=== PATIENT | female | born 1955 | race African-American/Black ===

== ENCOUNTER 2016-10-25 08:51 | Emergency (ER) | payer MEDICAID, OTHER ==
[~2016-10-25] VITALS: Ht 170.2 cm; Wt 87.1 kg
[2016-10-25] MEDS ORDERED: AMLO10TA2 PO (09:02)
[2016-10-25] MEDS ORDERED: ALPR1TAB2 PO (09:02)
[2016-10-25 09:17] LABS: *BILIRUBIN,URIN NEGATIVE (NEGATIVE); *BLOOD, URINE NEGATIVE (NEGATIVE); *COLOR,URINE YELLOW (YELLOW); *KETONES,URINE NEGATIVE (NEGATIVE); *PROTEIN,URINE NEGATIVE (NEGATIVE); *UROBILINOGEN,URINE 0.2 E.U./dl (NORMAL); LEUKOCYTE ESTERASE ,URINE 1+ (NEGATIVE); NITRITE, URINE NEGATIVE (NEGATIVE); PH,URINE 6.5 (5.0-8.0); UGLUCOSE NEGATIVE (NEGATIVE)
[2016-10-25 09:25] LABS: *CLARITY,URINE CLOUDY (CLEAR); RBC,URINE 0-3 /HPF (0-3)
[2016-10-25 09:26] LABS: BACTERIA,URINE MODERATE /HPF (NONE SEEN); SQUAMOUS EPITHELIAL CELL,UR MANY /HPF (NONE SEEN)
--- NOTE | 2016-10-25 09:45 | NUR ---
Pt seen in room 4A for urinry frequency and L thigh tingling and tingtness. Patient discharged to home in stable conditon. Written and verbal after care instructions given. Patient verbalizes understanding of instructions.
[2016-10-25 09:48] VITALS: BP 148/80
== END 2016-10-25 09:49 | disposition home or self-care (01) ==
LOC: ER 08:51
DX: N39.0 Urinary tract infection, site not specified (principal); I10 Essential (primary) hypertension; Z88.0 Allergy status to penicillin; R20.0 Anesthesia of skin
CPT/HCPCS: 87086; A4663